=== PATIENT | female | born 1980 | race Caucasian/White ===

== ENCOUNTER 2017-06-28 05:54 | Day surgery (SDC) | payer BC ==
[~2017-06-28] VITALS: Ht 175.3 cm; Wt 74.1 kg
[~2017-06-28 05:54] MED LIST: LEVE500S8 PO; RANI150T9 PO
[2017-06-28 06:36] VITALS: Ht 175.3 cm; Wt 74.1 kg
[2017-06-28] MEDS ORDERED: LEVO50TA74 PO (06:47)
[2017-06-28] MEDS ORDERED: METO25TA7 PO (06:47)
[2017-06-28 07:11] VITALS: BP 101/68; PULSE 60; RESP 20
[2017-06-28] MEDS ORDERED: MIDAZOLAM 1 MG/ML 2 ML INJ ONE ×2 (07:40)
[2017-06-28] MEDS ORDERED: FENTAnyl 50 MCG/ML VIAL ONE (07:41)
--- NOTE | 2017-06-28 07:43 | OPPN ---
Date/Time of Note Date/Time of Note DATE: 06/28/17 TIME: 07:42 Operative Report Preoperative Diagnosis Abdominal pain Chronic heartburn Postoperative Diagnosis Gastroesophageal reflux disease Gastritis with erosions Operation/Procedure Performed Esophagogastroduodenoscopy and biopsy Anesthesia Type: moderate sedation Estimated blood loss: none Transfusion Required: no Specimens Gastric mucosal biopsy Grafts/Implants: none Complications: no OLIMPIA MYERS MD Jun 28, 2017 07:43
[2017-06-28 08:05] VITALS: BP 92/58; PULSE 68; RESP 14
--- NOTE | 2017-06-28 08:05 | GILP ---
DATE OF PROCEDURE: 06/28/2017 PROCEDURE PERFORMED: Esophagogastroduodenoscopy and biopsy. PREOPERATIVE DIAGNOSES: 1. Abdominal pain. 2. Chronic heartburn. POSTOPERATIVE DIAGNOSES: 1. Gastroesophageal reflux disease. 2. Gastritis with erosions. 3. Gastric mucosal biopsies were taken for Helicobacter pylori test. INDICATION: Ms. Kait Lewis is a 36-year-old female patient who had upper abdominal pain and chronic heartburn not responding to therapy. The patient was scheduled for endoscopic examination for further evaluation. The procedure and possible complications were well explained to the patient. She understood and consented to the procedure. DESCRIPTION OF PROCEDURE: Under influence of fentanyl and Versed, the gastroscope was carefully introduced into the esophagus and under direct vision, it was advanced to the stomach, into the pylorus, into the duodenal bulb, and descending duodenum. FINDINGS: Esophagus: The patient had gastroesophageal reflux disease. Stomach: She had gastritis with erosions. Gastric mucosal biopsies were taken for H pylori test. Duodenum was normal. She tolerated the procedure very well. There is no complication from the procedure. At the end of procedure, she was awake with stable vital signs and she was discharged home in the care of her family. IMPRESSION: Please see postop diagnoses. PLAN: 1. Nexium 24 hours p.o. q.a.m., Zantac 300 mg p.o. at bedtime. 2. Await H pylori test report. Dictated By: MD MOUNIKA Shields/agapito/elsa /Document#: [id number] CC: Alfonso Rolon MD;*[facility]*
== END 2017-06-28 18:11 | disposition home or self-care (01) ==
LOC: GIL 05:54
PROVIDERS: ATTEND Internal Medicine Gastroenterology
DX: K21.9 Gastro-esophageal reflux disease without esophagitis (principal); K29.60 Other gastritis without bleeding
CPT/HCPCS: 43239; 84703; 87081; J2250; J3010; Z7610

== ENCOUNTER 2017-10-23 07:21 | Day surgery (SDC) | payer BC ==
[2017-10-23] VITALS (11 sets, daily range): BP systolic 87–118; BP diastolic 67–78; PULSE 62–74; RESP 12–24; Ht 175.3 cm; Wt 74.5 kg
[~2017-10-23] VITALS: Ht 175.3 cm; Wt 74.5 kg
[~2017-10-23 07:21] MED LIST changes: +AMIT100T2 PO; +BUTA1CAP39 PO; +CIPR500S2 PO; +LEVO50TA74 PO; +METO-335 PO; +OXYC-281 PO; +PROPOFOL 200 MG INJ ONE; -RANI150T9 PO
--- NOTE | 2017-10-23 07:34 | HPN ---
Date/Time of Note Date/Time of Note DATE: 10/23/17 TIME: 07:34 Interval H&P Admission Note Pt. seen H&P reviewed: No system changes CADY ZACARIAS MD Oct 23, 2017 07:34
[2017-10-23] MEDS ORDERED: METO-335 PO (07:42)
[2017-10-23] MEDS ORDERED: LEVO25TA50 PO (07:42)
[2017-10-23] MEDS ORDERED: LEVE-5 PO (07:42)
[2017-10-23] MEDS ORDERED: morphine 10 MG INJ IV PRN (08:00)
[2017-10-23] MEDS ORDERED: morphine 2 MG INJ IV PRN (08:00)
[2017-10-23] MEDS ORDERED: ROPIVACAINE 0.5 % 30 ML VIAL ONE (08:55)
[2017-10-23] MEDS ORDERED: BUPIVACAINE 0.5% (SDV) 30 ML INJ ONE (08:55)
[2017-10-23] MEDS ORDERED: FENTAnyl 50 MCG/ML VIAL ONE (09:21)
[2017-10-23] MEDS ORDERED: ROCURONIUM 50 MG INJ ONE (09:47)
[2017-10-23] MEDS ORDERED: CLINDAMYCIN 900 MG/D5W (PMX) 50 ML IVPB ONE (09:47)
[2017-10-23] MEDS ORDERED: LIDOCAINE 2% (SDV) 5 ML INJ ONE (09:47)
[2017-10-23] MEDS ORDERED: SUCCINYLCHOLINE CHLORIDE 100 MG/5 ML SYG IV ONE (09:47)
[2017-10-23] MEDS ORDERED: PROPOFOL 20 ML ONE (09:47)
[2017-10-23] MEDS ORDERED: SUGAMMADEX SODIUM 200 MG/2 ML VIAL IV ONE (09:47)
[2017-10-23] MEDS ORDERED: THROMBIN 5000 UNIT VIAL ONE (10:13)
[2017-10-23] MEDS ORDERED: CA CHLORIDE 10% 10 ML SYRINGE ONE (10:13)
[2017-10-23] MEDS ORDERED: METOCLOPRAMIDE 10 MG INJ IV PRN (10:30)
[2017-10-23] MEDS ORDERED: ONDANSETRON 4 MG INJ IV PRN (10:30)
[2017-10-23] MEDS ORDERED: DIPHENHYDRAMINE 50 MG INJ IV PRN (10:30)
[2017-10-23] MEDS ORDERED: HYDROmorphONE (0.2 MG/ML) 10ML SYG IV PRN ×3 (10:30)
[2017-10-23] MEDS ORDERED: MEPERIDINE 25 MG INJ IV PRN (10:30)
[2017-10-23] MEDS ORDERED: FENTAnyl 50 MCG/ML VIAL IV PRN ×2 (10:30)
--- NOTE | 2017-10-23 11:23 | OPR ---
Date/Time of Note Date/Time of Note DATE: 10/23/17 TIME: 11:01 Operative Report Procedure Date: Oct 23, 2017 Preoperative Diagnosis Right knee lateral meniscal tear Postoperative Diagnosis Right knee lateral meniscal tear Right knee patellofemoral chondromalacia Operation/Procedure Performed Right knee arthroscopy with repair of the lateral meniscus and application of platelet rich plasma to the lateral meniscus repair site Right knee arthroscopy with chondroplasty of the patellofemoral joint Surgeon Cady Zacarias MD Perioperative Tech None Anesthesia Type: general Anesthesiologist: ROXANNA WOODWARD Tourniquet Time: 40 minutes at 250 mmHg Estimated Blood Loss: minimal Transfusion none Specimen Mitek truespan meniscal repair Arthrex Ishaan platelet rich plasma spun at 5% hematocrit Grafts/Implants none Tubes/Drains None Complications none Pt Condition Post Procedure: stable Disposition: PACU Indications INDICATIONS: Patient is a 37 follow-up [id number] female with ongoing right knee pain. The patient has complained of having catching, clicking and locking symptoms over the medial aspect of the knee with no relief with physical therapy or anti-inflammatory. Patient has decided to proceed with surgery. RISK NOTE: Patient was explained the risks and benefits of the surgery in the patients beaver language, including not limited to infection, bleeding, loss of limb, loss of life, need for future surgery, risk of anesthesia, risk of injury to the blood vessels and nerves, ligaments or tendons, and risk of deep vein thrombosis. Patient understood these risks and wished to proceed with the surgery. Procedure Description The correct operative site was noted and marked in the preoperative holding area. The patient was then brought back into the operative theater, placed supine on the operative table. Right knee was examined under anesthesia. Range of motion was 0-120. There is no varus or valgus or anterior or posterior instability. There is slight crepitus noticed at the patellofemoral joint. Tourniquet was then placed on the operative extremity thigh non-sterilely. Patient was then given preoperative antibiotics and then prepped and draped in normal sterile fashion. A timeout was taken and all parties in the room agreed it was the correct patient, correct extremity and correct procedure. 10 cc of 0.25% Marcaine without epi was injected into the anteriorlateral and anteriormedial portal sites prior to incision. Standard anterior lateral portal was created and the knee joint was entered with a blunt tipped trocar, followed by 30 arthroscope. Inflow was achieved with a pump and the pressure maintained at approximately 50 mmHg. A routine arthroscopic surgery was performed. Suprapatella pouch was unremarkable. The undersurface of the patella showed advanced grade 1 -2 chondromalacia along the medial patellar facet The medial and lateral gutters were visualized. There were no loose bodies seen. No hypertrophic plica was noted. The popliteus hiatus was entered and was normal. Lateral compartment was entered and grade 1 chondromalacia was seen on the lateral tibial plateau and femoral condyle. There was found to be a lateral meniscal tear in the junction of the mid body and anterior horn. Also noted is fraying and tearing of the anterior horn of lateral meniscus. The tear at the junction was probed and found to be a cleavage type tear extending at least to the red red and red white zone. It was determined this tear would be attempted to be repaired given patient's age and activity level. We then use a meniscal rasp at the tear site to increase and stimulate healing response and then using a [employer] true span repair device with a 24 angle the meniscus was repaired using a stitch on both the top and the bottom to close down the cleavage tear. The meniscus was then reprobed and found to be stable. The remaining tear along the anterior horn which is in the white white zone was partially debrided with a basket biter and shaver. Scope was then brought into the intercondylar notch and an anteromedial portal was made. Shaver was brought into the knee and small amount of fat pad and scar tissue was initially gently debrided. The anterior cruciate ligament was intact and probed. The knee was brought into a valgus position and the medial compartment was entered. The articular surface of the medial femoral condyle and medial tibial plateau revealed excellent cartilage surface as well as no tear in the medial meniscus. The lateral compartment was reentered and the loose chondral debris was debrided with motorized shaver And a [employer] werewolf. Attention was then directed back to the patella femoral joint and a chondroplasty was carried out along the weightbearing aspect of the trochlea and undersurface of the patella to again remove loose debris and maintain functional active articular cartilage with both a shaver and a [employer] werewolf device. The knee was then irrigated with additional 2 L of lactated Ringers solution. Excess fluid was then drained. Then the needle was angled toward the lateral meniscal tear and then using the platelet rich plasma mixed with calcium chloride the repair site was then coated with platelet rich plasma. Under direct visualization. Range of motion was then attempted showing 0- 125 degrees of motion The portal sites were closed with 4-0 Monocryl and Steri-Strips and dressed with Xeroform and triple antibiotic ointment. The knee was then injected with 20 cc of 0.5% plain ropivacaine. A dry sterile dressing was then applied followed by a bulky soft bandage soaked in platelet poor plasma and Romel wrap. The patient was placed into a T ROM brace that was locked in the extension position at 0. At the completion of the surgery patient had palpable pulses, soft arms and brisk cap refill. The patient tolerated the procedure well and was taken to the PACU without any complications. All sponge and needle counts were correct. Patient will begin pain medicine and 48 hours of antibiotics as well as aspirin 81 mg for the duration of 4 weeks postoperatively CADY ZACARIAS MD Oct 23, 2017 11:14
[2017-10-23] MEDS ORDERED: oxyCODONE 15 MG TAB PO ONE (11:30)
[2017-10-23] MEDS ORDERED: oxyCODONE (CR) 15 MG TAB [oxyCONTIN] PO ONE (11:30)
== END 2017-10-23 12:15 | disposition home or self-care (01) ==
LOC: SUR 07:21 → MERGE 07:21 → SDS 07:21 → SUR 12:15
PROVIDERS: ATTEND Orthopaedic Surgery
DX: M23.241 Derangement of anterior horn of lateral meniscus due to old tear or injury, right knee (principal); M94.261 Chondromalacia, right knee; I50.9 Heart failure, unspecified
CPT/HCPCS: 29881; J2175; J2795; J3010; Z7610; 84703

== ENCOUNTER 2017-12-07 09:00 | Emergency (ER) | END 2017-12-07 11:18 | disposition home or self-care (01) ==

== ENCOUNTER 2018-04-18 06:14 | Day surgery (SDC) | END 2018-04-18 13:02 | disposition home or self-care (01) ==

== ENCOUNTER → 2018-08-09 | Outpatient (CLI) | END | disposition home or self-care (01) ==

== ENCOUNTER 2018-09-13 07:01 | Day surgery (SDC) | END 2018-09-13 12:46 | disposition home or self-care (01) ==

== ENCOUNTER 2019-05-09 14:24 | Emergency (ER) | payer BC ==
[~2019-05-09] VITALS: Ht 175.3 cm; Wt 79.5 kg
[~2019-05-09 14:24] MED LIST changes: -AMIT100T2 PO; -BUTA1CAP39 PO; -CIPR500S2 PO; +DIAZ10TA4 PO; +LEVE-5 PO; -LEVE500S8 PO; +LEVO100T82 PO; -LEVO50TA74 PO; +MECL-77 PO; -METO-335 PO; +METO-448 PO; -OXYC-281 PO; -PROPOFOL 200 MG INJ ONE
[2019-05-09 14:37] VITALS: BP 124/84; PULSE 104; RESP 20; Ht 175.3 cm; Wt 79.5 kg
[2019-05-09] MEDS ORDERED: ONDANSETRON 4 MG INJ IV STA ×2 (15:51→18:26)
[2019-05-09] MEDS ORDERED: morphine 4 MG/ML VIAL IV STA (15:51)
[2019-05-09] MEDS ORDERED: SOD CHLORIDE 0.9% 500 ML IV STA (15:51)
[2019-05-09] MEDS ORDERED: CIPROFLOXACIN 500 MG TAB PO ONE (18:30)
[2019-05-09] MEDS ORDERED: ACET500C5 PO (18:39)
[2019-05-09] MEDS ORDERED: ONDA4TAB14 PO (18:39)
[2019-05-09] MEDS ORDERED: CIPR500T4 PO (18:39)
[2019-05-09] MEDS ORDERED: HYDR-4011 PO (18:39)
--- NOTE | 2019-05-10 09:39 | ERD ---
ER Documentation Chief Complaint Chief Complaint FEVER FOR 2 DAYS, HOARSE VOICE, ST SINCE THIS MORNING. NO DROOLING. HPI This is a 38 yo female patient who presents to the ED with c/o fever (Tmax 103.5), RLQ pain, nausea, vomiting x 2 days. No cough, no CP, no SOB. Denies sick contacts, no recent travel. Multiple medical problems including seizure, hypothyroid, migraine, vertigo, idiopathic tachycardia, CKD. ROS All systems reviewed and are negative except as per history of present illness. Medications Home Meds Active Scripts Acetaminophen* (Tylophen*) 500 Mg Capsule, 2 CAP PO Q8H PRN for PAIN AND OR ELEVATED TEMP, #20 CAP Prov:OSIEL PAGAN NP 05/09/19 Hydrocodone/Acetaminophen ([place] 5-325 Tablet) 1 Each Tablet, 1 TAB PO Q6H PRN for PAIN for 3 Days, #10 TAB Prov:OSIEL PAGAN NP 05/09/19 Ondansetron (Ondansetron Odt) 4 Mg Tab.rapdis, 4 MG PO Q6H PRN for NAUSEA AND/OR VOMITING for 5 Days, #10 TAB Prov:OSIEL PAGAN NP 05/09/19 Ciprofloxacin Hcl* (Ciprofloxacin Hcl*) 500 Mg Tablet, 500 MG PO BID for 7 Days, TAB Prov:OSIEL PAGAN NP 05/09/19 Reported Medications Levothyroxine Sodium* (Levoxyl*) 100 Mcg Tablet, 100 MCG PO BEFORE BREAKFAST, #30 TAB 09/13/18 Metoprolol Tartrate* (Lopressor*) 25 Mg Tab, 25 MG PO BID, #60 TAB 09/13/18 Diazepam* (Diazepam*) 10 Mg Tablet, 10 MG PO QHS, TAB 09/13/18 Meclizine Hcl* (Meclizine Hcl*) 25 Mg Tablet, 25 MG PO Q8H PRN for DIZZINESS, TAB 04/17/18 Levetiracetam* (Keppra*) 500 Mg Tablet, 500 MG PO BID, TAB 10/23/17 Allergies Allergies: Coded Allergies: Penicillins (Verified Allergy, Severe, ANAPHILACTIC SHOCK, 09/13/18) Sulfa (Sulfonamide Antibiotics) (Verified Allergy, Severe, ANAPHYLACTIC, 09/13/18) codeine (Verified Allergy, Severe, ANAPHILACTIC SHOCK, 09/13/18) promethazine (Verified Allergy, Unknown, 09/13/18) sulfamethoxazole (Verified Allergy, Unknown, 09/13/18) trimethoprim (Verified Allergy, Unknown, 09/13/18) PMhx/Soc History of Surgery: Yes (LT CTR, RT SHOULDER,LUMA WRIST,RT HIP,ANKLE,KNEE,LT FOOT) Anesthesia Reaction: No Hx Neurological Disorder: Yes (SZ ,CHRONIC VERTIGO,MIGRAINES) Hx Respiratory Disorders: Yes (ASTHMA) Hx Cardiac Disorders: Yes (TACHYCARDIA,PERICARDITIS) Hx Psychiatric Problems: No Hx Miscellaneous Medical Probl: Yes (HYPOTHYROIDISM) Hx Alcohol Use: Yes (OCCASIONAL) Hx Substance Use: No Hx Tobacco Use: Yes Smoking Status: Current every day smoker Physical Exam Vitals Vital Signs Date Temp Pulse Resp B/P (MAP) Pulse Ox O2 O2 Flow FiO2 Time Delivery Rate 05/09/19 99.9 104 20 124/84 98 14:37 (97) Physical Exam Const: No acute distress Head: Atraumatic Eyes: Normal Conjunctiva ENT: Normal External Ears, Nose and Mouth. Neck: Full range of motion. No meningismus. Resp: Clear to auscultation bilaterally Cardio: Regular rate and rhythm, no murmurs Abd: Soft, non tender, non distended. Normal bowel sounds Skin: No petechiae or rashes Back: No midline or flank tenderness Ext: No cyanosis, or edema Neur: Awake and alert Psych: Normal Mood and Affect Result Diagram: 05/09/19 1622 05/09/19 1622 Results 24 hrs Laboratory Tests Test 05/09/19 16:13 05/09/19 16:22 05/09/19 16:52 POC Beta HCG, Qualitative NEGATIVE White Blood Count 13.4 10^3/ul Red Blood Count 5.45 10^6/ul Hemoglobin 16.7 g/dl Hematocrit 49.2 % Mean Corpuscular Volume 90.3 fl Mean Corpuscular Hemoglobin 30.6 pg Mean Corpuscular 33.9 g/dl Hemoglobin Concent Red Cell Distribution Width 13.0 % Platelet Count 286 10^3/UL Mean Platelet Volume 10.9 fl Immature Granulocytes % 1.200 % Neutrophils % 79.1 % Lymphocytes % 7.5 % Monocytes % 9.4 % Eosinophils % 2.2 % Basophils % 0.6 % Nucleated Red Blood Cells % 0.0 /100WBC Immature Granulocytes # 0.160 10^3/ul Neutrophils # 10.6 10^3/ul Lymphocytes # 1.0 10^3/ul Monocytes # 1.3 10^3/ul Eosinophils # 0.3 10^3/ul Basophils # 0.1 10^3/ul Nucleated Red Blood Cells # 0.0 10^3/ul Urine Color YELLOW Urine Clarity SLIGHTLY CLOUDY Urine pH 5.0 Urine Specific [place] 1.018 Urine Ketones TRACE mg/dL Urine Nitrite NEGATIVE mg/dL Urine Bilirubin NEGATIVE mg/dL Urine Urobilinogen NEGATIVE mg/dL Urine Leukocyte Esterase NEGATIVE Kelly/ul Urine Microscopic RBC 1 /HPF Urine Microscopic WBC 3 /HPF Urine Mucus MODERATE /HPF Urine Hemoglobin 2+ mg/dL Urine Glucose 1+ mg/dL Urine Total Protein 3+ mg/dl Sodium Level 136 mmol/L Potassium Level 4.5 mmol/L Chloride Level 103 mmol/L Carbon Dioxide Level 25 mmol/L Anion Gap 8 Blood Urea Nitrogen 16 mg/dl Creatinine 0.97 mg/dl Est Glomerular Filtrat > 60 mL/min Rate mL/min Glucose Level 127 mg/dl Calcium Level 8.8 mg/dl Total Bilirubin 0.7 mg/dl Direct Bilirubin 0.00 mg/dl Indirect Bilirubin 0.7 mg/dl Aspartate Amino Transf (AST/SGOT) 34 IU/L Alanine 28 IU/L Aminotransferase (ALT/SGPT) Alkaline Phosphatase 109 IU/L Total Protein 7.4 g/dl Albumin 3.9 g/dl Globulin 3.50 g/dl Albumin/Globulin Ratio 1.11 Lipase 136 U/L Creatine Kinase 76 IU/L Current Medications Medications Dose Sig/Toño Start Time Status Last (Trade) Ordered Route PRN Stop Time Admin Dose Reason Admin Sodium 500 ml @ Q1H STAT 05/09/19 DC 05/09/19 Chloride 500 mls/hr IV 15:51 16:24 05/09/19 16:50 Ondansetron 4 mg ONCE STAT 05/09/19 DC 05/09/19 HCl (Zofran IV 15:51 16:26 Inj) 05/09/19 15:57 Morphine 4 mg ONCE STAT 05/09/19 DC 05/09/19 Sulfate IV 15:51 16:26 (morphine) 05/09/19 15:57 500 mg ONCE ONCE 05/09/19 DC 05/09/19 Ciprofloxacin PO 18:30 19:13 (Cipro) 05/09/19 18:37 Ondansetron 4 mg ONCE STAT 05/09/19 DC 05/09/19 HCl (Zofran IV 18:26 19:13 Inj) 05/09/19 18:38 Procedures/MDM PROCEDURES/MDM DIAGNOSTIC IMAGING: Read by radiologist. CT Abd/Pelvis- pt refusing contrast stating prior contrast has put her into kidney failure IMPRESSION: Prominent retroperitoneal inflammation is seen around both kidneys with fluid tracking around the kidneys and in the retroperitoneum inferiorly. There is mild ascites as well. This could represent prominent cystitis and pyelonephritis and can be correlated with urinalysis. Pancreatitis can also be considered in the differential and can be correlated with amylase/lipase levels. Mild fat stranding is seen along the posterior margins of the pericolic gutters without visible colonic wall thickening. Colitis is not excluded however considered less likely. There is no obstruction or appendicitis and there is diverticulosis without diverticulitis. Atherosclerotic disease is present. No renal or ureteral calculi with no evidence of hydronephrosis. LAB INTERPRETATION: Leukocytosis, no electrolyte disturbance, no nephropathy, no transaminitis. normal lipase. Urine negative for nitrites and leukocytes, however +mucus, +RBC, +WBC with indication for pyelonephritis on CT. Urine has been sent for culture. -Medications: NS, zofran, morphine, cipro Patient tolerated medication well with no adverse reactions. Patient reported improvement in pain and nausea. MDM: This 38 yo female patient presents to the ED with concern for fever, vomiting, and RLQ pain x2days. The clinical exam and diagnostic work-up support acute pyelonephritis. The patient has been started on Cipro in the ED. She has multiple antibiotic allergies and states she has had Cipro before without allergic reaction. Also states she is safe to have hydrocodone, but not codeine that is in tylenol #3. At time of discharge the patient reports improvement in pain, nausea, and is agreeable to plan for discharge. After evaluation and workup, there is low suspicion for sepsis, appendicitis, bowel obstruction, diverticulitis, toxic shock syndrome or rhabdomyolysis (concern of patient). There are no signs of peritonitis or serious, life-threatening etiology. Patient is discharge to care of mother to home with instructions on antibiotic and antiemetic use, hydration, and s/sx of worsening of condition and when to return to ER. Pt will follow-up with PMD for reevaluation next week. DISPOSITION and PLAN: RX: Cipro, zofran, [place], tylenol The patient has been discharge home to follow-up with community physician. Departure Diagnosis: Primary Impression: Pyelonephritis Additional Impressions: Fever Fever type: due to other condition Qualified Codes: R50.81 - Fever presenting with conditions classified elsewhere Nausea & vomiting Vomiting type: unspecified Vomiting Intractability: non-intractable Qualified Codes: R11.2 - Nausea with vomiting, unspecified Condition: Stable Patient Instructions: Pyelonephritis, Female (Adult) Additional Instructions: Thank you very much for allowing us to participate in your care. Your health and safety is our top priority at [facility]. Call your primary care doctor TOMORROW for an appointment during the next 2-4 days and bring all the information and medications prescribed. Have prescriptions filled and follow precisely the directions on the label. If the symptoms get worse and your provider is unavailable, return to the Emergency Department immediately. TAKE ENTIRE COURSE OF ANTIBIOTICS. INCREASE HYDRATION TO 1 TO 2 L/DAY. USE ZOFRAN NEEDED FOR NAUSEA. FOLLOW-UP WITH YOUR PRIMARY CARE DOCTOR FOR REEVALUATION. RETURN TO THE EMERGENCY ROOM FOR SEVERE ABDOMINAL PAIN, FEVER, BLOOD IN YOUR URINE. OSIEL PAGAN NP May 10, 2019 09:39
== END 2019-05-09 19:46 | disposition home or self-care (01) ==
LOC: FTE 14:24
DX: N12 Tubulo-interstitial nephritis, not specified as acute or chronic (principal); J45.909 Unspecified asthma, uncomplicated; E03.9 Hypothyroidism, unspecified; F17.210 Nicotine dependence, cigarettes, uncomplicated; N18.9 Chronic kidney disease, unspecified
CPT/HCPCS: 36415; 74176; 80053; 81001; 81025; 82550; 83690; 85025; 87086; 96374; 96375; 96376; J2270; J2405; J7040; Z7502; Z7610